=== PATIENT | male | born 1975 | race Two or more races ===

== ENCOUNTER 2020-11-18 23:04 | Emergency (ER) | payer OTHER ==
[~2020-11-18] VITALS: Ht 165.1 cm; Wt 108.9 kg
[2020-11-19 00:08] LABS: Basophils # (auto) 0.1 10 ^3/uL (0-0.2); Eosinophils # (auto) 0.2 10 ^3/uL (0-0.8); Eosinophils % (auto) 2.3 % (0.0-7.0); Hematocrit 45.7 % (41.0-53.0); Hemoglobin 16.3 g/dL (13.5-17.5); Lymphocytes # (auto) 4.1 10 ^3/uL (0.4-5.4); Lymphocytes % (auto) 42.3 % (10.0-50.0); Mean Corpuscular Hemoglobin 33.3 pg (28.0-32.0); Mean Corpuscular Hgb Conc. 35.6 g/dL (32.0-36.0); Mean Corpuscular Volume 93.5 fL (80.0-100.0); Monocytes # (auto) 0.5 10 ^3/uL (0-1.3); Monocytes % (auto) 5.6 % (0.0-12.0); Neutrophils # (auto) 4.7 10 ^3/uL (1.6-8.6); Neutrophils % (auto) 48.8 % (37.0-80.0); Nucleated Red Blood Cells % 0.1 %; Red Blood Cells 4.89 10^6/uL (4.5-5.90); Red Cell Distribution Width 14.1 % (11.8-14.3); White Blood Cell 9.6 10^3/uL (4.4-10.8)
[2020-11-19 00:25] LABS: Alanine Aminotransferase 66 U/L (16-61); Albumin 3.3 g/dL (3.4-5.0); Anion Gap 8 (5-15); Aspartate Aminotransferase 41 U/L (15-37); BUN/Creatinine Ratio 15.5; Blood Urea Nitrogen 16 mg/dL (7-18); Carbon Dioxide 22 mmol/L (21-32); Chloride 111 mmol/L (98-107); GFR African American 101 mL/min; GFR Non-African American 83 mL/min; Glucose 120 mg/dL (74-106); Sodium 141 mmol/L (136-145)
[2020-11-19 00:30] LABS: Alkaline Phosphatase 82 U/L (45-117); Bilirubin, Total 0.3 mg/dL (0.2-1.0); Total Protein 7.3 g/dL (6.4-8.2)
[2020-11-19 04:00] VITALS: BP 126/74
== END 2020-11-19 05:44 | disposition home or self-care (01) ==
LOC: ER 23:06
DX: R07.89 Other chest pain (principal)
CPT/HCPCS: 36415; 71045; 80053; 83880; 84484; 85025; 85049; 93005